=== PATIENT | male | born 1990 | race African-American/Black ===

== ENCOUNTER 2023-03-08 23:28 | Emergency (ER) | payer SELFPAY ==
--- NOTE | 2023-03-08 | ECG_ITS ---
Test Reason : CP Blood Pressure : / mmHG Vent. Rate : 089 BPM Atrial Rate : 089 BPM P-R Int : 138 ms QRS Dur : 084 ms QT Int : 408 ms P-R-T Axes : 048 -04 041 degrees QTc Int : 496 ms Normal sinus rhythm Possible Left atrial enlargement Minimal voltage criteria for LVH, may be normal variant ( R in aVL ) Nonspecific T wave abnormality Prolonged QT Abnormal ECG No previous ECGs available Referred By: Generic ED Physician Electronically Signed By:CECILIA BROWN MD
--- NOTE | ~2023-03-08 | XR_ITS ---
EXAMINATION: XR CHEST CLINICAL INFORMATION: Cough with chest pain COMPARISON: None available. TECHNIQUE: 2 views of the chest were obtained. FINDINGS: There is mild cardiac enlargement. No evidence of CHF. Lungs are hypoinflated. Some mild bibasilar atelectasis is seen. No consolidations or pleural effusions. An intramedullary jhon is seen in the right humerus. XR/XR chest 2V IMPRESSION: Mild cardiomegaly. No acute intrathoracic disease.
[2023-03-08 23:42] VITALS: BP 233/130; PULSE 94; RESP 20; TEMP 36.3; O2SAT 97; BMI 40.6
[2023-03-09] VITALS (8 sets, daily range): BP systolic 165–213; BP diastolic 99–142; PULSE 76–92; RESP 13–19; TEMP 36.6–36.9; O2SAT 94–99
[2023-03-09 00:18] LABS: MANUAL DIFF FLAG NO
[2023-03-09 00:19] LABS: Basophils Absolute Auto 0.1 X10*3/uL (0.0-0.2); Basophils Percent Auto 0.6 % (0-2); Eosinophils Absolute Auto 0.4 X10*3/uL (0.0-0.4); Eosinophils Percent Auto 4.6 % (0-4); Hematocrit 44.7 % (42.0-52.0); Hemoglobin 14.7 g/dl (14.0-18.0); Imm Gran Abs Auto 0.02 X10*3/uL (0.00-0.03); Imm Gran Pct Auto 0.3 % (0.0-0.4); Lymphocytes Absolute Auto 3.7 X10*3/uL (1.2-4.9); Lymphocytes Percent Auto 47.3 % (20-40); Mean Corpuscular HGB Conc 32.9 g/dl (31.0-36.0); Mean Corpuscular Hemoglobin 26.8 pg (27.0-33.0); Mean Corpuscular Volume 81.6 fL (80.0-98.0); Mean Platelet Volume 10.4 fL (9.4-12.4); Monocytes Absolute Auto 0.4 X10*3/uL (0.1-1.2); Monocytes Percent Auto 5.6 % (2-11); Neutrophils Absolute Auto 3.3 x10*3/uL (2.0-8.3); Neutrophils Percent Auto 41.6 % (45-73); Platelet Count 255 X10*3/uL (160-400); Red Blood Count 5.48 X10*6/uL (4.60-5.80); White Blood Count 7.9 X10*3/uL (4.8-10.8)
[2023-03-09 00:35] LABS: Anion Gap 13 (12-20); Blood Urea Nitrogen 20 mg/dL (9-16); Calcium 8.9 mg/dL (8.4-10.2); Carbon Dioxide 25 mmol/L (22-29); Chloride 108 mmol/L (96-108); Creatinine Clr Calc Pharmacy 61.3; Estimated Glomerular Filt Rate 37; Glucose Random 95 mg/dL (60-115); Magnesium 2.1 mg/dL (1.6-2.6); Potassium 3.5 mmol/L (3.3-5.1); Sodium 142 mmol/L (135-145)
[2023-03-09 00:42] LABS: B Type Natriuretic Peptide 56 pg/mL (<100)
[2023-03-09 00:43] LABS: Troponin-I High Sensitivity 28.7 ng/L (<3.5-35.0)
[2023-03-09 00:56] LABS: Influenza A PCR NEGATIVE (Negative); Influenza B PCR NEGATIVE (Negative); Resp Syncy Virus RNA Qual PCR NEGATIVE (Negative); SARS COV2 PCR INHOUSE NEGATIVE (Negative)
[2023-03-09] MEDS: Labetalol HCL 100 MG/20 ML VIAL IVPUSH ×2 (02:38→04:26)
--- NOTE | 2023-03-09 02:47 | PC.NURSE ---
pt a&o, resting in bed, medicated per mar, denied any chest pain, pt on the bed side monitor. no sign of distress.
--- NOTE | 2023-03-09 02:52 | ED_ITS ---
HPI - Chest Pain General Chief Complaint: Chest Pain Stated Complaint: Chest Pain Time Seen by Provider: 03/09/23 00:48 Source: patient Mode of arrival: ambulatory History of Present Illness HPI narrative: This is a 32-year-old male with known hypertension and he states he intermittently takes his blood pressure medication and presents today with complaints of cough/congestion and said that he when he was coughing he then noted that he began wheezing afterwards. At the time of my interview patient states his symptoms have completely resolved. He does report some chest discomfort but says that that has also resolved he denies any dizziness or headache or shortness of breath. Related Data Allergies Allergy/AdvReac Type Severity Reaction Status Date / Time No Known Allergies Allergy Verified 03/08/23 23:40 Review of Systems 2 Review of Systems: Pertinent positives and negatives as stated in HPI PMFSH Past Medical History Source: nursing notes reviewed Social History Social History Smoked in Last 30 Days: No Use of substances other than those prescribed or required for medical reasons: No Advance Directives: No Advance Directives Information Provided: Yes Physical Exam 2 Vital Signs: Vital Signs: Last Vital Signs Temp 98.5 F 03/09/23 00:11 Pulse 81 03/09/23 00:11 Resp 19 03/09/23 00:11 BP 207/142 H 03/09/23 00:11 Pulse Ox 94 03/09/23 00:11 O2 Del Method Room Air 03/09/23 00:11 BMI result Body Mass Index 40.6 VITAL SIGNS: Reviewed. GENERAL: Elevated BMI, Well developed, well nourished, in no acute distress. HEAD: Normocephalic/atraumatic EYES: PERRLA, EOMI EARS: Ext canals without abnormality NOSE: Nares patent bilateral OROPHARYNX: no oral lesions noted, posterior pharynx clear NECK: Supple, no adenopathy LUNGS: Good inspiratory effort there noted adventitious sounds on expiration in right base. SpO2<94>; no crepitus noted on chest wall examination CARDIOVASCULAR: Regular rate and rhythm without noted murmurs, no JVD or lower extremity edema. ABDOMEN: Soft, non-tender, non-distended with bowel sounds. MUSCULOSKELETAL: No tenderness, deformities, or effusions noted on gross inspection. EXTREMITIES: No cyanosis, clubbing or edema. SKIN: Inspection of the skin reveals no rashes NEUROLOGIC: Alert and oriented x 4. Strength and sensation to light touch were grossly intact x 4. Medications Administered Discontinued Medications Generic Name Dose Route Start Last Admin Trade Name Calvin PRN Reason Stop Dose Admin Labetalol HCl 5 mg 03/09/23 02:11 03/09/23 02:38 Labetalol Hcl 100 Mg/20 Ml Vial IVPUSH 03/09/23 02:12 5 mg ONCE ONE Administration Medical Decision Making Medical Decision Making MDM Narrative: 32-year-old male with history and clinical presentation of complete resolution of his presenting complaints that he says was wheezing. Incidentally patient was found to be excessively hypertensive but asymptomatic without neurologic findings and at this time denying any chest pain. I reviewed all investigations and hematologic indices are negative for leukocytosis or left shift, there is no anemia or thrombocytopenia. I have noted that there is an eosinophilia. Chemistry indices are grossly within normal limits with the exception of renal failure which given patient's current blood pressure and endorsement of inconsistent use of his blood pressure medication I feel is likely chronic in nature. Troponin is noted to be detectable at 28.7 and BNP is within normal limits. Viral testing is negative for influenza/RSV/COVID. Chest x-ray does not demonstrate any infiltrate or venous congestion but there is evidence of cardiomegaly. EKG with normal sinus rhythm no evidence of STEMI. Given patient's current blood pressure will ask nursing to place IV and administer labetalol, I have discussed with patient at bedside the importance of consistent use of his blood pressure medication. Patient's primary care doctor is in [place] and highly recommended the patient follow-up with his primary care doctor in the next 1-2 days. Signed out to Dr Darden - f/u BP - Trop#2 Differential Diagnosis Differential Diagnoses: The differential diagnosis associated with the presentation includes Please see the discussion above Admission/Observation Consideration of admission/observation: Escalation of care including admission/observation considered Please see the discussion above Lab Data [facility] Lab Attestation statement: I reviewed the patient's lab results. Please see the discussion above 03/09/23 00:14 03/09/23 00:14 Labs: Lab Results 03/08/23 03/09/23 Range/Units 23:48 00:14 WBC 7.9 (4.8-10.8) X10*3/uL RBC 5.48 (4.60-5.80) X10*6/uL Hgb 14.7 (14.0-18.0) g/dl Hct 44.7 (42.0-52.0) % MCV 81.6 (80.0-98.0) fL MCH 26.8 L (27.0-33.0) pg MCHC 32.9 (31.0-36.0) g/dl RDW 14.0 (11.0-16.0) % Plt Count 255 (160-400) X10*3/uL MPV 10.4 (9.4-12.4) fL Immature Gran % (Auto) 0.3 (0.0-0.4) % Neut % (Auto) 41.6 L (45-73) % Lymph % (Auto) 47.3 H (20-40) % [place] % (Auto) 5.6 (2-11) % Eos % (Auto) 4.6 H (0-4) % Baso % (Auto) 0.6 (0-2) % Lymph # (Auto) 3.7 (1.2-4.9) X10*3/uL [place] # (Auto) 0.4 (0.1-1.2) X10*3/uL Eos # (Auto) 0.4 (0.0-0.4) X10*3/uL Baso # (Auto) 0.1 (0.0-0.2) X10*3/uL Abs Immat Gran (auto) 0.02 (0.00-0.03) X10*3/uL Absolute Neuts (auto) 3.3 (2.0-8.3) x10*3/uL Absolute Nucleated RBC 0.000 (0.0-0.012) X10*3/uL Nucleated RBC % (auto) 0.0 (0.0-0.2) /100WBC Sodium 142 (135-145) mmol/L Potassium 3.5 (3.3-5.1) mmol/L Chloride 108 (96-108) mmol/L Carbon Dioxide 25 (22-29) mmol/L Anion Gap 13 (12-20) BUN 20 H (9-16) mg/dL Creatinine 2.10 H (0.5-1.4) mg/dL Estim Creat Clear Calc 61.3 Estimated GFR 37 Random Glucose 95 (60-115) mg/dL Calcium 8.9 (8.4-10.2) mg/dL Magnesium 2.1 (1.6-2.6) mg/dL Troponin I High Sens 28.7 (<3.5-35.0) ng/L B-Natriuretic Peptide 56 (<100) pg/mL Influenza Type A (PCR) NEGATIVE (Negative) Influenza Type B (PCR) NEGATIVE (Negative) RSV RNA Qual (PCR) NEGATIVE (Negative) SARS-CoV-2 RNA (RT-PCR) NEGATIVE (Negative) Independent Interpretation I performed an independent interpretation of an: EKG Interpretation: Normal sinus rhythm, HR-89, no STEMI, NC/QRS are within normal limits, QTC mildly prolonged at 496. Radiology Impression Discussion of test interpretation with radiology: I have reviewed the radiologist's reading. Radiologist Impression: Please see the discussion above Chronic Conditions Patient?s care impacted by: Hypertension Critical Care Time Critical Care Time Critical Care Time: Yes Total Critical Care Time: 30 Attestation: I personally attest to this time spent taking care of the patient. Discharge Plan Discharge Clinical Impression: Chest pain, Hypertension, uncontrolled Patient Disposition: Still a Patient
[2023-03-09] MEDS: amLODIPine Besylate 10 MG TABLET PO (03:19)
[2023-03-09 03:32] LABS: Amphetamine Screen Urine Not Detected (Not Detect); Barbiturates, Urine Not Detected (Not Detect); Benzodiazepines Screen Urine Not Detected (Not Detect); Cannabinoid Screen Urine Not Detected (Not Detect); Cocaine Screen Urine Not Detected (Not Detect); Fentanyl, urine Not Detected (Not Detect); Opiate Screen Urine Not Detected (Not Detect); Phencyclidine Screen Urine Not Detected (Not Detect)
[2023-03-09 03:44] LABS: Troponin-I High Sensitivity 38.5 ng/L (<3.5-35.0)
[2023-03-09 05:48] LABS: Troponin-I High Sensitivity 34.8 ng/L (<3.5-35.0)
[2023-03-09] MEDS: Labetalol HCL 100 MG TABLET PO (06:27)
--- NOTE | 2023-03-09 07:31 | PC.NURSE ---
This bid writer resumed care of patient at 0700, previous nurse had not given last two medication orders, after discussion with MD patient verbalized he wanted to leave to go to a different hospital that was closer to home. Extensive education given to patient on HTN and situation seriousness. Pt still wanting to leave. AMA paperwork signed, no medications given per MD prior to patient leaving. IV removed.
== END 2023-03-09 07:36 | disposition left against medical advice (07) ==
PROVIDERS: Emergency Medicine; Student in an Organized Health Care Education/Training Program; Emergency Provider Emergency Medicine
DX: R07.89 Other chest pain (principal); I10 Essential (primary) hypertension; R06.02 Shortness of breath; Z20.822 Contact with and (suspected) exposure to COVID-19; Z20.828 Contact with and (suspected) exposure to other viral communicable diseases; Z79.899 Other long term (current) drug therapy
CPT/HCPCS: 0241U; 36415; 71046; 80048; 80307; 83735; 83880; 84484; 85025; 93005; 96374; 96376; 99284; 99285